=== PATIENT | male | born 1985 | race Caucasian/White ===

== ENCOUNTER 2017-02-14 19:07 | Emergency (ER) | payer MEDICAID ==
[~2017-02-14] VITALS: Ht 170.2 cm; Wt 168.5 kg
[2017-02-14 19:15] VITALS: Ht 170.2 cm; Wt 168.5 kg
[2017-02-14] MEDS ORDERED: EPINEPHrine 1 MG INJ IM STA (19:53)
[2017-02-14] MEDS ORDERED: DIPHENHYDRAMINE 50 MG INJ IV STA (19:53)
[2017-02-14] MEDS ORDERED: METHYLPREDNISOLONE 125 MG INJ IV STA (19:53)
[2017-02-14] MEDS ORDERED: FAMOTIDINE 20 MG INJ IV STA (19:53)
[2017-02-14] MEDS ORDERED: SOD CHLORIDE 0.9% 1,000 ML IV ONE (20:00)
[2017-02-14] MEDS ORDERED: BEN25 PO (21:45)
[2017-02-14] MEDS ORDERED: PRED20TA PO (21:50)
[2017-02-14] MEDS ORDERED: EPIN0.3P4 INJ (21:50)
[2017-02-14 22:04] VITALS: BP 165/83; PULSE 99; RESP 15
--- NOTE | 2017-02-14 22:08 | ERD ---
ER Documentation Chief Complaint Date/Time DATE: 02/14/17 TIME: 22:05 Chief Complaint SOB after seafood today HPI Patient is a 31-year-old male here with who presents to the ED with bilateral arm itchiness, redness and shortness of breath with throat discomfort after eating seafood, crabs and shrimp today. Approximately 2 PM he ate the food and approximately 5 PM started developing symptoms. Denies recent surgeries. Denies chest pain or cough. Denies leg swelling or leg pain. Denies recent travel or smoking. ROS All systems reviewed and are negative except as per history of present illness. Medications Home Meds Active Scripts Prednisone* (Prednisone*) 20 Mg Tab, 60 MG PO DAILY for 4 Days, TAB Prov:THANIA CORRAL PA-C 02/14/17 Epinephrine (Epipen 2-Claudio) 0.3 Mg/0.3 Ml Pen.injctr, 1 EA INJ ONCE Y for ALLERGIC REACTION, #1 EA Prov:THANIA CORRAL PA-C 02/14/17 Diphenhydramine Hcl* (Benadryl*) 25 Mg Cap, 25 MG PO Q6, #30 CAP Prov:THANIA CORRAL PA-C 02/14/17 Allergies Allergies: Coded Allergies: No Known Allergy (Unverified , 07/10/13) PMhx/Soc Medical and Surgical Hx: pt denies Medical Hx, pt denies Surgical Hx History of Surgery: No Anesthesia Reaction: No Hx Neurological Disorder: No Hx Respiratory Disorders: No Hx Cardiac Disorders: No Hx Psychiatric Problems: No Hx Miscellaneous Medical Probl: No Hx Alcohol Use: No Hx Substance Use: No Hx Tobacco Use: No Smoking Status: Never smoker Physical Exam Vitals Vital Signs Date Time Temp Pulse Resp B/P Pulse Ox O2 Delivery O2 Flow Rate FiO2 02/14/17 20:49 82 26 154/87 95 Room Air 02/14/17 19:15 98.9 28 147/79 92 Physical Exam mal GENERAL: Well-developed, well-nourished obese male Appears in no acute distress. HEAD: Normocephalic, atraumatic. EYES: Pupils are equally reactive bilaterally. EOMs grossly intact. No conjunctival erythema. ENT: Moist mucous membranes. No uvula deviation. No kissing tonsils. No exudates. NECK: Supple. No lymphadenopathy or thyromegaly. No meningismus. negative kernig. negative brudinski. LUNG: Clear to auscultation bilaterally. No rhonchi, wheezing, rales or coarse breath sounds. HEART: Regular rate and rhythm. No murmurs, rubs or gallops. BACK: No midline tenderness. Extremities: Equal pulses bilaterally. No peripheral clubbing, cyanosis or edema. No unilateral leg swelling. Negative Homans sign. No palpable cord. NEUROLOGIC: Alert and oriented. Moving all four extremities. 5/5 strength in all extremities. Normal speech. Steady gait. SKIN: Normal color. Warm and dry. Erythematous arms.. Capillary refill < 2 seconds Results 24 hrs Current Medications Medications (Trade) Dose Ordered Sig/Alicia Route PRN Reason Start Time Stop Time Status Last Admin Dose Admin Diphenhydramine HCl (Benadryl) 50 mg ONCE STAT IV 02/14/17 19:53 02/14/17 19:56 DC 02/14/17 20:30 Epinephrine (EPINEPHrine) 0.3 mg ONCE STAT IM 02/14/17 19:53 02/14/17 19:56 DC 02/14/17 20:32 Famotidine (Pepcid Iv) 20 mg ONCE STAT IV 02/14/17 19:53 02/14/17 19:56 DC 02/14/17 20:31 Methylprednisolone Sodium Succinate 125 mg 125 mg ONCE STAT IV 02/14/17 19:53 02/14/17 19:56 DC 02/14/17 20:33 Sodium Chloride (NS) 1,000 ml @ 1,000 mls/hr Q1H ONCE IV 02/14/17 20:00 02/14/17 20:59 DC 02/14/17 20:49 Procedures/MDM ER COURSE: I kept the patient and/or family informed of laboratory and diagnostic imaging results throughout the emergency room course. MEDICAL DECISION MAKING: This is a 31-year-old male who presents with rash and shortness of breath after eating seafood. Vital signs were reviewed. Patient is afebrile. Patient is not hypoxic. She has an oxygen saturation of 90% in the ED. I consulted with my supervising physician Dr. Garcia who came to examine patient at bedside. Patient was given epinephrine, Solu-Medrol, IV fluids, normal saline Benadryl and Pepcid. Tolerated with no adverse reaction. Patient was observed in the ED and had improvement in symptoms. Oxygen saturation increased to 96%. I have low suspicion for PE. Low suspicion for ACS, PE, AAA, dissection, DVT. Low suspicion for necrotizing fasciitis, SJS, toxic epidermal necrolysis, Kawasaki, erythema multiforme, gangrene, scarlet fever, meningococcemia, sepsis , anaphylaxis, sepsis, deep space infection, or foreign body. Patient does not have tongue or lip swelling. Low suspicion for anaphylaxis. DISCHARGE: At this time, patient is stable for discharge and outpatient management with no new complaints during the ER course. Patient was sent home with prednisone, epinephrine as needed for future and Benadryl. Patient will be discharged home with instructions to recheck for new or worsening symptoms such as fever, nausea , weakness, LOC and to follow up with primary care in the next 1-2 days. Patient was advised to return to the ER for any new or worsening symptoms. Plan was discussed and patient and/or family understands and agrees. Home instructions were given. Departure Diagnosis: Primary Impression: Allergic reaction Encounter type: initial encounter Qualified Code: T78.40XA - Allergic reaction, initial encounter Condition: Stable Patient Instructions: Allergic Reaction, Drug Referrals: [facility] Usted se brantley hecho un examen mdico de control que le indica que no est en olvin condicin que requiera tratamiento urgente en el Departamento de Emergencia. Un estudio ms profundo y el tratamiento de blair condicin pueden esperar sin ningn riesgo hasta que usted sea atendida/o en el consultorio de blair mdico o olvin cl krunal. Es responsabilidad suya arreglar olvin michele para el seguimiento del ysei. MANEJO DE CONDICIONES NO URGENTES EN EL FUTURO 1) Si usted tiene un mdico de atencin primaria: Usted debera llamar a blair mdico de atencin primaria antes de venir al departamento de emergencia. Despus de las horas de consultorio, blair doctor o blair asociado/a est disponible por telfono. El mdico o enfermero de deb en el servicio telefnico puede asesorarle por lulu medio para atender el problema, o yesi contrario se puede programar olvin michele. 2) Si usted no tiene un mdico de atencin primaria: Llame al mdico o clnica de referencia que aparece abajo ravin las horas de consultorio para hacer olvin michele para que le vean. CLINICAS: [facility] [phone] [facility] [phone] [facility] [phone] [place] [id number] [phone] [place] [id number] [phone] [facility]. [phone] [address] Additional Instructions: Llame al doctor MAANA y dom olvin MICHELE PARA DENTRO DE 1-2 ZAPATA.Dgale a la secretaria que nosotros le instruimos hacer esta michele.Avise o llame si blair condicin se empeora antes de la michele. Regresa aqui si peor o no mejor. THANIA CORRAL PA-C Feb 14, 2017 22:08
== END 2017-02-14 22:04 | disposition home or self-care (01) ==
LOC: FTE 19:07
DX: R06.02 Shortness of breath (principal); T78.1XXA Other adverse food reactions, not elsewhere classified, initial encounter
CPT/HCPCS: 96372; 96374; 96375; J0171; J1200; J2930; J7030; Z7502; Z7610

== ENCOUNTER 2018-09-11 01:17 | Inpatient (IN) | payer MEDICAID ==
[2018-09-11] VITALS (8 sets, daily range): BP systolic 121–124; BP diastolic 59–76; PULSE 67–104; RESP 18; Ht 170.2 cm; Wt 177.8 kg
[~2018-09-11] VITALS: Ht 170.2 cm; Wt 177.8 kg
[~2018-09-11 01:17] MED LIST: BEN25 PO; EPIN0.3P4 INJ; PRED20TA PO
[2018-09-11] MEDS ORDERED: ASPIRIN 325 MG TAB PO STA (02:57)
--- NOTE | 2018-09-11 03:26 | ERD ---
ER Documentation Chief Complaint Chief Complaint PALPITATIONS, L ARM PAIN, BENITO X'S 1 HOUR HPI This 33-year-old male who is here for palpitations and shortness of breath. He said he was asleep and woke up with palpitations and difficulty breathing for 30-40 minutes with some chest pressure. He said the chest pressure was mild. He says he does not have sleep apnea and states he has not had any chest pain as of late. Denies any cough. He says he feels better now. No radiation of pain down the arm or neck. The patient is morbidly obese with hypertension ROS All systems reviewed and are negative except as per history of present illness. Medications Home Meds Active Scripts Prednisone* (Prednisone*) 20 Mg Tab, 60 MG PO DAILY for 4 Days, TAB Prov:THANIA CORRAL PA-C 02/14/17 Epinephrine (Epipen 2-Claudio) 0.3 Mg/0.3 Ml Pen.injctr, 1 EA INJ ONCE PRN for ALLERGIC REACTION, #1 EA Prov:THANIA CORRAL PA-C 02/14/17 Diphenhydramine Hcl* (Benadryl*) 25 Mg Cap, 25 MG PO Q6, #30 CAP Prov:THANIA CORRAL PA-C 02/14/17 Allergies Allergies: Coded Allergies: No Known Allergy (Unverified , 07/10/13) PMhx/Soc Medical and Surgical Hx: pt denies Medical Hx, pt denies Surgical Hx History of Surgery: No Anesthesia Reaction: No Hx Neurological Disorder: No Hx Respiratory Disorders: No Hx Cardiac Disorders: No Hx Psychiatric Problems: No Hx Miscellaneous Medical Probl: No Hx Alcohol Use: No Hx Substance Use: No Hx Tobacco Use: No Smoking Status: Never smoker FmHx Family History: No coronary disease Physical Exam Vitals Vital Signs Date Temp Pulse Resp B/P (MAP) Pulse Ox O2 O2 Flow FiO2 Time Delivery Rate 09/11/18 85 12 152/89 96 Nasal 3.0 05:29 (110) Cannula 09/11/18 Nasal 2 02:59 Cannula 09/11/18 98.0 87 20 130/82 93 Room Air 02:31 (98) 09/11/18 98.0 86 20 156/83 93 01:21 (107) Physical Exam Const: Well-developed, well-nourished Head: Atraumatic, normocephalic Eyes: Normal Conjunctiva, PERRLA, EOMI, normal sclera, no nystagmus ENT: Normal External Ears, Nose and Mouth, moist mucus membranes. Neck: Full range of motion. No meningismus, no lymphadenopathy. Resp: Clear to auscultation bilaterally, no wheezing, rhonchi, rales Cardio: Regular rate and rhythm, no murmurs, S1 S2 present Abd: Soft, non tender x 4, non distended. Normal bowel sounds, no guarding or rebound, no pulsitile abdominal masses or bruits Skin: No petechiae or rashes, no ecchymosis , no maculopapular rash Back: No midline or flank tenderness Ext: No cyanosis, or edema, FROM x 4, normal inspection, neurovascularly intact x 4 Neur: Awake and alert, STR 5/5 x 4, sensation intact x 4, no focal findings, cerebellum intact Psych: Normal Mood and Affect Result Diagram: 09/11/18 0230 09/11/18 0230 Results 24 hrs Laboratory Tests Test 09/11/18 02:30 White Blood Count 9.3 10^3/ul Red Blood Count 6.06 10^6/ul Hemoglobin 15.9 g/dl Hematocrit 50.8 % Mean Corpuscular Volume 83.8 fl Mean Corpuscular Hemoglobin 26.2 pg Mean Corpuscular Hemoglobin Concent 31.3 g/dl Red Cell Distribution Width 13.9 % Platelet Count 226 10^3/UL Mean Platelet Volume 10.6 fl Immature Granulocytes % 0.400 % Neutrophils % 64.6 % Lymphocytes % 23.0 % Monocytes % 8.2 % Eosinophils % 3.2 % Basophils % 0.6 % Nucleated Red Blood Cells % 0.0 /100WBC Immature Granulocytes # 0.040 10^3/ul Neutrophils # 6.0 10^3/ul Lymphocytes # 2.1 10^3/ul Monocytes # 0.8 10^3/ul Eosinophils # 0.3 10^3/ul Basophils # 0.1 10^3/ul Nucleated Red Blood Cells # 0.0 10^3/ul Prothrombin Time 12.6 Sec Prothrombin Time Ratio 1.0 INR International Normalized Ratio 0.93 Activated Partial Thromboplast Time 27.4 Sec Sodium Level 145 mmol/L Potassium Level 4.1 mmol/L Chloride Level 101 mmol/L Carbon Dioxide Level 33 mmol/L Anion Gap 11 Blood Urea Nitrogen 15 mg/dl Creatinine 0.68 mg/dl Est Glomerular Filtrat Rate mL/min > 60 mL/min Glucose Level 128 mg/dl Calcium Level 9.6 mg/dl Troponin I 0.012 ng/ml B-Type Natriuretic Peptide 23 PG/ML Current Medications Medications Dose Sig/Alicia Start Time Status Last (Trade) Ordered Route PRN Stop Time Admin Dose Reason Admin Aspirin 325 mg ONCE STAT 09/11/18 DC 09/11/18 (Aspirin) PO 02:57 03:07 09/11/18 02:59 IV Flush 10 ml STK-MED 09/11/18 DC (NS 10 ml) ONCE .ROUTE 04:27 09/11/18 04:28 Sodium 100 ml @ ud STK-MED 09/11/18 DC Chloride ONCE .ROUTE 04:09/11/18 04:28 Iohexol 100 ml @ ud STK-MED 09/11/18 DC ONCE .ROUTE 04:27 09/11/18 04:28 Procedures/MDM PROCEDURE: CTA Chest and pulmonary angiogram. CLINICAL INDICATION: Shortness of breath TECHNIQUE: CT scan of the chest and CT pulmonary angiogram was performed on a multidetector high-resolution CT scanner. High-resolution thin slice coronal and sagittal imaging was obtained from the axial source images. 3-D volumetric rendered post processing was performed as well. The patient was examined following the uncomplicated intravenous administration of 99 cc of Omnipaque 350. The images were reviewed on a PACS workstation. The total exam CTDI equals 114.5 mGy, and the total exam DLP equals 867.6 mGy-cm. DICOM images are available. COMPARISON: CR CHEST 07/27/2014 FINDINGS: CT chest: There are mild dependent compressive changes. No focal consolidation, pleural effusion, pneumothorax, edema, or nodules are seen. The central tracheobronchial tree is clear. The mediastinum is unremarkable without evidence for mass or lymphadenopathy. The vascular structures of the mediastinum are normal in course and caliber. The heart size is normal without pericardial thickening or effusion. Prominent mediastinal and epicardial fat is noted.. The axillary, subpectoral, and supraclavicular regions are unremarkable. The surrounding chest wall is unremarkable. Imaging obtained through the upper abdomen is unremarkable.. The adrenal glands are symmetrically normal. Old left rib fractures are seen. CT pulmonary angiogram: CT pulmonary angiogram is limited due to bolus timing. No large filling defects are identified in the central pulmonary arteries. The pulmonary arteries are normal in caliber and morphology. There is no evidence for pulmonary arterial hypertension. IMPRESSION: 1. Limited CT pulmonary angiogram. Ventilation-perfusion scan is recommended. 2. No acute infiltrate, mass or lymphadenopathy. [facility] Mick Toledo Physician Date Time Electronically viewed and signed by Mick Toledo Physician on 09/11/2018 06:08 CS/ CC: PIO THAPA DO [id number] Will order VQ scan. Cardiac Admit MDM: Patient's symptoms are concerning for cardiac cause will require inpatient workup and continuous monitoring. Further w/u for ischemia, arrhythmia, PE or dissection will be deferred to the inpatient team. Departure Diagnosis: Primary Impression: Chest pain Chest pain type: unspecified Qualified Codes: R07.9 - Chest pain, unspecified Additional Impression: Shortness of breath Condition: Stable PIO THAPA DO Sep 11, 2018 03:26
[2018-09-11] MEDS ORDERED: SOD CHLORIDE 0.9% 100 ML ONE (04:27)
[2018-09-11] MEDS ORDERED: IOHEXOL 100 ML ONE (04:27)
[2018-09-11] MEDS ORDERED: ACETAMINOPHEN 325 MG TAB PO PRN ×2 (06:30→07:00)
[2018-09-11] MEDS ORDERED: ONDANSETRON 4 MG INJ IV PRN ×2 (06:30→07:00)
[2018-09-11] MEDS ORDERED: DOCUSATE SODIUM 100 MG CAP PO PRN (07:00)
[2018-09-11] MEDS ORDERED: NACL 0.9% 3 ML SYG IV SCH (07:00)
[2018-09-11] MEDS ORDERED: NITROGLYCERIN (SL) 0.4 MG TAB SL PRN (07:00)
[2018-09-11] MEDS ORDERED: BISACODYL (EC) 5 MG TAB PO PRN (07:00)
[2018-09-11] MEDS ORDERED: morphine 2 MG INJ IV PRN (07:00)
--- NOTE | 2018-09-11 09:00 | HP ---
Date/Time of Note Date/Time of Note DATE: 09/11/18 TIME: 08:52 Assessment/Plan VTE Prophylaxis SCD applied (from Nsg): Yes Pharmacological prophylaxis: NA/contraindicated Pharm contraindication: low risk/ambulating Lines/Catheters IV Catheter Type (from Nrsg): Saline Lock Assessment/Plan Hospital Course This is a 33-year-old male being admitted to the telemetry floor for observation for: 1 chest pain: Rule out ACS versus obesity hypoventilation syndrome/obstructive sleep apnea: We will trend cardiac enzymes x3, the first that was negative. Will check an echocardiogram. CT of the chest did not proved to be a adequately performed study, we will order a VQ scan of the chest. 2. Suspect obesity hypoventilation syndrome/obstructive sleep apnea: Patient is morbidly obese and does have trace lower extremity edema. Based on his symptoms of daytime sleepiness, non-restful sleep and morning headaches I do feel like he has an underlying diagnosis of obstructive sleep apnea/obesity hypoventilation syndrome. Patient needs a primary care doctor upon discharge with referral to a patent legal assistant. #3 morbid obesity: Check hemoglobin A 1C, lipid panel, TSH, I did have an extensive discussion regarding diet and exercise with the patient as well. #4 DVT GI prophylaxis: SCDs, no GI prophylaxis indicated Further treatment strategy could be implemented as per the clinical course Result Diagram: 09/11/18 0230 09/11/18 0230 Results 24hrs Laboratory Tests Test 09/11/18 02:30 09/11/18 07:21 White Blood Count 9.3 Red Blood Count 6.06 Hemoglobin 15.9 Hematocrit 50.8 Mean Corpuscular Volume 83.8 Mean Corpuscular Hemoglobin 26.2 L Mean Corpuscular Hemoglobin Concent 31.3 L Red Cell Distribution Width 13.9 Platelet Count 226 Mean Platelet Volume 10.6 H Immature Granulocytes % 0.400 Neutrophils % 64.6 Lymphocytes % 23.0 Monocytes % 8.2 Eosinophils % 3.2 Basophils % 0.6 Nucleated Red Blood Cells % 0.0 Immature Granulocytes # 0.040 H Neutrophils # 6.0 Lymphocytes # 2.1 Monocytes # 0.8 Eosinophils # 0.3 Basophils # 0.1 Nucleated Red Blood Cells # 0.0 Prothrombin Time 12.6 Prothrombin Time Ratio 1.0 INR International Normalized Ratio 0.93 Activated Partial Thromboplast Time 27.4 Sodium Level 145 H Potassium Level 4.1 Chloride Level 101 Carbon Dioxide Level 33 H Anion Gap 11 Blood Urea Nitrogen 15 Creatinine 0.68 Est Glomerular Filtrat Rate mL/min > 60 Glucose Level 128 Calcium Level 9.6 Troponin I 0.012 < 0.012 B-Type Natriuretic Peptide 23 16 Hemoglobin A1c 6.4 H Creatine Kinase 86 Creatine Kinase Index 1.2 Creatinine Kinase MB (Mass) 1.00 Triglycerides Level 119 Cholesterol Level 167 LDL Cholesterol, Calculated 107 HDL Cholesterol 36 Cholesterol/HDL Ratio 4.6 Thyroid Stimulating Hormone (TSH) Pending Ethyl Alcohol Level < 10.0 H HPI/ROS Admit Date/Time Admit Date/Time Sep 11, 2018 at 06:17 Hx of Present Illness Chief complaint: Palpitations, shortness of breath This 33-year-old male who is here for palpitations and shortness of breath. He said he was asleep and woke up with palpitations and difficulty breathing for 30-40 minutes with some chest pressure. He said the chest pressure was mild. He says he does not have sleep apnea and states he has not had any chest pain as of late. Denies any cough. He says he feels better now. No radiation of pain down the arm or neck. The patient is morbidly obese. Patient does report that he experiences daytime sleepiness. His is also present with him at the bedside who does report that he snores a lot at night and often wakes up with headaches. Allergies: NKDA Medications: None ROS Const: As per HPI Eyes : No pain discharge or redness or change in visual acuity ENT: No pain, sore throat, congestion, congestion, dysphagia or discharge Respiratory: No shortness of breath, cough, sputum, wheezing, or pleuritic pain Cardiovascular: As per HPI GI : no change in appetite, abdominal pain, nausea, vomiting, diarrhea, constipation, or change in the color his stool Genitourinary: No dysuria, hematuria, flank pain , discharge or CVA tenderness Musculoskeletal: No joint pain, back pain, neck pain, restricted range of motion in neck or joints Skin: No rash, bruising or hives Neuro: As per HPI Endocrine: No polyuria, polydipsia, temperature intolerance Psych: No hallucination, depression, anxiety or suicidal ideation PMH/Family/Social Past Medical History Prediabetes Medications Current Medications Ondansetron HCl (Zofran Inj) 4 mg ER BRIDGE PRN IV NAUSEA/VOMITING; Start 09/11/18 at 06:30; Stop 09/12/18 at 06:29 Acetaminophen (Tylenol Tab) 650 mg ER BRIDGE PRN PO .MILD PAIN 1-3 OR TEMP; St art 09/11/18 at 06:30; Stop 09/12/18 at 06:29 IV Flush (NS 3 ml) 3 ml PER PROTOCOL IV ; Start 09/11/18 at 07:00 Ondansetron HCl (Zofran Inj) 4 mg Q6H PRN IV NAUSEA/VOMITING; Start 09/11/18 at 07:00 Nitroglycerin (Nitroglycerin (Sl Tab) 0.4 Mg) 1 tab Q5M PRN SL .CHEST PAIN; Start 09/11/18 at 07:00 Acetaminophen (Tylenol Tab) 650 mg Q6H PRN PO .PAIN 1-3 OR TEMP; Start 09/11/18 at 07:00 Morphine Sulfate (morphine) 2 mg Q4H PRN IV .PAIN 7-10; Start 09/11/18 at 07:00 Docusate Sodium (Colace) 100 mg Q12H PRN PO .CONSTIPATION; Start 09/11/18 at 07:00 Bisacodyl (Dulcolax) 5 mg DAILY PRN PO .CONSTIPATION; Start 09/11/18 at 07:00 Coded Allergies: No Known Allergy (Unverified , 07/10/13) Past Surgical History Past Surgical Hx: no surgical history Family History Significant Family History: no pertinent family hx Social History Alcohol Use: rarely Smoking Status: Never smoker Drug Use: none Exam/Review of Systems Vital Signs Vitals Vital Signs Date Temp Pulse Resp B/P (MAP) Pulse Ox O2 O2 Flow FiO2 Time Delivery Rate 09/11/18 72 08:40 09/11/18 98.4 16 110/91 97 Nasal 3.0 08:02 (97) Cannula Exam Exam General: Patient is currently lying in bed in no acute distress, patient is morbidly obese HEENT: Atraumatic, normocephalic. The pupils are equal, round and reactive. Extraocular motor are intact Neck: Supple with full range of motion. No rigidity or meningismus Chest: Nontender Lungs: Clear to auscultation bilaterally no crackles rales or wheezing Heart: Normal S1-S2, Regular rhythm and rate. Abdomen: Morbidly obese, soft , nontender, nondistended , bowel sounds are present. No guarding no rebound tenderness , No masses or organomegaly. No costovertebral temporal angle mass Extremities: Trace pitting edema of the bilateral lower extremities Neurologic: Normal mental status, speech normal, cranial nerves II through XII are intact, motor and sensory are intact, no focal weakness Additional Comments Telemetry reading: Normal sinus rhythm at approximately 86 bpm, PROCEDURE: CTA Chest and pulmonary angiogram. CLINICAL INDICATION: Shortness of breath TECHNIQUE: CT scan of the chest and CT pulmonary angiogram was performed on a multidetector high-resolution CT scanner. High-resolution thin slice coronal and sagittal imaging was obtained from the axial source images. 3-D volumetric rendered post processing was performed as well. The patient was examined following the uncomplicated intravenous administration of 99 cc of Omnipaque 350. The images were reviewed on a PACS workstation. The total exam CTDI equals 114.5 mGy, and the total exam DLP equals 867.6 mGy-cm. DICOM images are available. COMPARISON: CR CHEST 07/27/2014 FINDINGS: CT chest: There are mild dependent compressive changes. No focal consolidation, pleural effusion, pneumothorax, edema, or nodules are seen. The central trache obronchial tree is clear. The mediastinum is unremarkable without evidence for mass or lymphadenopathy. The vascular structures of the mediastinum are normal in course and caliber. The heart size is normal without pericardial thickening or effusion. Prominent mediastinal and epicardial fat is noted.. The axillary, subpectoral, and supraclavicular regions are unremarkable. The surrounding chest wall is unremarkable. Imaging obtained through the upper abdomen is unremarkable.. The adrenal glands are symmetrically normal. Old left rib fractures are seen. CT pulmonary angiogram: CT pulmonary angiogram is limited due to bolus timing. No large filling defects are identified in the central pulmonary arteries. The pulmonary arteries are normal in caliber and morphology. There is no evidence for pulmonary arterial hypertension. IMPRESSION: 1. Limited CT pulmonary angiogram. Ventilation-perfusion scan is recommended. 2. No acute infiltrate, mass or lymphadenopathy. [facility] Mick Toledo, Physician Date Time Electronically viewed and signed by Mick Toledo, Physician on 09/11/2018 06:08 CS/ CC: PIO THAPA DO [id number] BRIAN SALAS Sep 11, 2018 09:00
--- NOTE | 2018-09-11 15:34 | PN ---
Date/Time of Note Date/Time of Note DATE: 09/11/18 TIME: 15:21 Assessment/Plan VTE Prophylaxis SCD applied (from Nsg): Yes Pharmacological prophylaxis: NA/contraindicated Pharm contraindication: low risk/ambulating Lines/Catheters IV Catheter Type (from Nrsg): Saline Lock Urinary Cath still in place: No Assessment/Plan Assessment/Plan 1. Acute chest pain - most likely demand in setting of morbid obesity - troponins negative x2 - ECHO results pending - CT chest not adequate and unable to perform V/Q due to size 2. Pickwickian syndrome - lifestyle modification - CPAP at night and will need outpatient sleep study which can be arranged by PCP 3. Morbid obesity - A1c, lipid panel results noted 4. Disposition - Awaiting 3rd troponin and ECHO results - if patients symptoms resolve and results negative for ACS, can d/c home Result Diagram: 09/11/18 0230 09/11/18 0230 Results 24hrs Laboratory Tests Test 09/11/18 02:30 09/11/18 07:21 09/11/18 12:30 09/11/18 14:04 White Blood Count 9.3 Red Blood Count 6.06 Hemoglobin 15.9 Hematocrit 50.8 Mean Corpuscular 83.8 Volume Mean Corpuscular 26.2 L Hemoglobin Mean Corpuscular 31.3 L Hemoglobin Concent Red Cell 13.9 Distribution Width Platelet Count 226 Mean Platelet Volume 10.6 H Immature 0.400 Granulocytes % Neutrophils % 64.6 Lymphocytes % 23.0 Monocytes % 8.2 Eosinophils % 3.2 Basophils % 0.6 Nucleated Red Blood 0.0 Cells % Immature 0.040 H Granulocytes # Neutrophils # 6.0 Lymphocytes # 2.1 Monocytes # 0.8 Eosinophils # 0.3 Basophils # 0.1 Nucleated Red Blood 0.0 Cells # Prothrombin Time 12.6 Prothrombin Time 1.0 Ratio INR International 0.93 Normalized Ratio Activated 27.4 Partial Thromboplast Time Sodium Level 145 H Potassium Level 4.1 Chloride Level 101 Carbon Dioxide Level 33 H Anion Gap 11 Blood Urea Nitrogen 15 Creatinine 0.68 Est Glomerular > 60 Filtrat Rate mL/min Glucose Level 128 Calcium Level 9.6 Troponin I 0.012 < 0.012 Pending B-Type Natriuretic 23 16 Peptide Hemoglobin A1c 6.4 H Creatine Kinase 86 78 Creatine Kinase 1.2 Pending Index Creatinine Kinase MB 1.00 Pending (Mass) Triglycerides Level 119 Cholesterol Level 167 LDL Cholesterol, 107 Calculated HDL Cholesterol 36 Cholesterol/HDL 4.6 Ratio Thyroid Stimulating 2.460 Hormone (TSH) Ethyl Alcohol Level < 10.0 H Urine Opiates Screen Negative Urine Barbiturates Negative Urine Amphetamines Negative Screen Urine Negative Benzodiazepines Screen Urine Cocaine Screen Negative Urine Cannabinoids Negative Subjective 24 Hr Interval Summary Free Text/Dictation Patient denies any acute chest pain but still with shortness of breath. No acute overnight event. Exam/Review of Systems Exam Vitals Vital Signs Date Temp Pulse Resp B/P (MAP) Pulse Ox O2 O2 Flow FiO2 Time Delivery Rate 09/11/18 97.7 87 18 124/74 92 Nasal 2.0 15:12 (91) Cannula Exam General: Patient is currently lying in bed in no acute distress, patient is morbidly obese Neck: Supple Chest: Nontender Lungs: Clear to auscultation bilaterally no crackles rales or wheezing Heart: Normal S1-S2, Regular rhythm and rate. no murmurs Abdomen: Morbidly obese, soft , nontender, nondistended , bowel sounds are present Extremities: Trace pitting edema of the bilateral lower extremities Results Results 24hrs Laboratory Tests Test 09/11/18 02:30 09/11/18 07:21 09/11/18 12:30 09/11/18 14:04 White Blood Count 9.3 Red Blood Count 6.06 Hemoglobin 15.9 Hematocrit 50.8 Mean Corpuscular 83.8 Volume Mean Corpuscular 26.2 L Hemoglobin Mean Corpuscular 31.3 L Hemoglobin Concent Red Cell 13.9 Distribution Width Platelet Count 226 Mean Platelet Volume 10.6 H Immature 0.400 Granulocytes % Neutrophils % 64.6 Lymphocytes % 23.0 Monocytes % 8.2 Eosinophils % 3.2 Basophils % 0.6 Nucleated Red Blood 0.0 Cells % Immature 0.040 H Granulocytes # Neutrophils # 6.0 Lymphocytes # 2.1 Monocytes # 0.8 Eosinophils # 0.3 Basophils # 0.1 Nucleated Red Blood 0.0 Cells # Prothrombin Time 12.6 Prothrombin Time 1.0 Ratio INR International 0.93 Normalized Ratio Activated 27.4 Partial Thromboplast Time Sodium Level 145 H Potassium Level 4.1 Chloride Level 101 Carbon Dioxide Level 33 H Anion Gap 11 Blood Urea Nitrogen 15 Creatinine 0.68 Est Glomerular > 60 Filtrat Rate mL/min Glucose Level 128 Calcium Level 9.6 Troponin I 0.012 < 0.012 Pending B-Type Natriuretic 23 16 Peptide Hemoglobin A1c 6.4 H Creatine Kinase 86 78 Creatine Kinase 1.2 Pending Index Creatinine Kinase MB 1.00 Pending (Mass) Triglycerides Level 119 Cholesterol Level 167 LDL Cholesterol, 107 Calculated HDL Cholesterol 36 Cholesterol/HDL 4.6 Ratio Thyroid Stimulating 2.460 Hormone (TSH) Ethyl Alcohol Level < 10.0 H Urine Opiates Screen Negative Urine Barbiturates Negative Urine Amphetamines Negative Screen Urine Negative Benzodiazepines Screen Urine Cocaine Screen Negative Urine Cannabinoids Negative Medications Medication Current Medications Ondansetron HCl (Zofran Inj) 4 mg ER BRIDGE PRN IV NAUSEA/VOMITING; Start 09/11/18 at 06:30; Stop 09/12/18 at 06:29 Acetaminophen (Tylenol Tab) 650 mg ER BRIDGE PRN PO .MILD PAIN 1-3 OR TEMP; Start 09/11/18 at 06:30; Stop 09/12/18 at 06:29 IV Flush (NS 3 ml) 3 ml PER PROTOCOL IV ; Start 09/11/18 at 07:00 Ondansetron HCl (Zofran Inj) 4 mg Q6H PRN IV NAUSEA/VOMITING; Start 09/11/18 at 07:00 Nitroglycerin (Nitroglycerin (Sl Tab) 0.4 Mg) 1 tab Q5M PRN SL .CHEST PAIN; Start 09/11/18 at 07:00 Acetaminophen (Tylenol Tab) 650 mg Q6H PRN PO .PAIN 1-3 OR TEMP; Start 09/11/18 at 07:00 Morphine Sulfate (morphine) 2 mg Q4H PRN IV .PAIN 7-10; Start 09/11/18 at 07:00 Docusate Sodium (Colace) 100 mg Q12H PRN PO .CONSTIPATION; Start 09/11/18 at 07:00 Bisacodyl (Dulcolax) 5 mg DAILY PRN PO .CONSTIPATION; Start 09/11/18 at 07:00 CORAZON CHUA MD Sep 11, 2018 15:34
[2018-09-12] VITALS (13 sets, daily range): BP systolic 122–149; BP diastolic 64–78; PULSE 73–93; RESP 16–18
[2018-09-12] MEDS ORDERED: ALBUTEROL/IPRATROPIUM (NEB) 3 ML AMP HHN PRN (15:30)
--- NOTE | 2018-09-12 16:21 | PN ---
Date/Time of Note Date/Time of Note DATE: 09/12/18 TIME: 16:16 Objective Vitals Vital Signs Date Temp Pulse Resp B/P (MAP) Pulse Ox O2 O2 Flow FiO2 Time Delivery Rate 09/12/18 98.3 83 16 122/64 93 15:38 (83) 09/12/18 Nasal 2.0 08:24 Cannula 09/12/18 40 02:50 Intake and Output 09/11/18 09/11/18 09/12/18 1515:00 23:00 07:00 IntakeIntake Total 1000 ml 1400 ml OutputOutput Total 400 ml BalanceBalance 600 ml 1400 ml Results Result Diagram: 09/12/18 0555 09/12/18 0554 Medications Medications Current Medications IV Flush (NS 3 ml) 3 ml PER PROTOCOL IV ; Start 09/11/18 at 07:00 Ondansetron HCl (Zofran Inj) 4 mg Q6H PRN IV NAUSEA/VOMITING; Start 09/11/18 at 07:00 Nitroglycerin (Nitroglycerin (Sl Tab) 0.4 Mg) 1 tab Q5M PRN SL .CHEST PAIN; Start 09/11/18 at 07:00 Acetaminophen (Tylenol Tab) 650 mg Q6H PRN PO .PAIN 1-3 OR TEMP; Start 09/11/18 at 07:00 Morphine Sulfate (morphine) 2 mg Q4H PRN IV .PAIN 7-10; Start 09/11/18 at 07:00 Docusate Sodium (Colace) 100 mg Q12H PRN PO .CONSTIPATION; Start 09/11/18 at 07:00 Bisacodyl (Dulcolax) 5 mg DAILY PRN PO .CONSTIPATION; Start 09/11/18 at 07:00 Albuterol/ Ipratropium (Duoneb) 3 ml Q6HWA RESP THERAPY HHN ; Start 09/12/18 at 20:00 Albuterol/ Ipratropium (Duoneb) 3 ml Q2H RESP THERAPY PRN HHN shortness of breath; Start 09/12/18 at 15:30 Budesonide (Pulmicort (Neb)) 0.5 mg BID RESP THERAPY HHN ; Start 09/12/18 at 20:00 VTE Prophylaxis Risk score (from Ns)>0 risk: 2 SCD applied (from Nsg): No SCD contraindication: other Lines/Catheters IV Catheter Type: [place] in Place: No Assessment/Plan Hospital Course Subjective Patient feeling well with nasal cannula Objective Physical exam General: Patient is laying in bed and answers questions appropriately Mentation: Patient is alert and oriented 4, Head: Normocephalic atraumatic Eyes: EOMI, pupils reactive to light Neck: Supple, nontender, midline Respiratory: Clear to auscultation bilaterally Cardiovascular: regular rate, no obvious murmurs Gastrointestinal: non-tender to palpation, bowel sounds heard. Neurological: Moves all extremities spontaneously Skin: No new skin lesions Assessment/Plan 1. Acute chest pain, resolved - most likely demand in setting of morbid obesity - troponins negative x3 - ECHO results pending - CT chest not adequate and unable to perform V/Q due to size 2. Pickwickian syndrome/Obesity hypoventilation - lifestyle modification - CPAP at night and will need outpatient sleep study which can be arranged by PCP -Although patient states he feels well, FiO2 is persistently low without nasal cannula, will try nebulizers to try to increase oxygen if patient can be discharged with a safe FiO2 -Pulmonology has been consulted as patient's CT angio was not not conclusive for no PE however patient does not have PE symptoms, patient is too obese for VQ scan, ABG has been ordered 3. Morbid obesity - A1c, lipid panel results noted 4. Disposition MADISON WHITLEY Sep 12, 2018 16:21
--- NOTE | 2018-09-12 20:40 | RADRPT ---
Echocardiogram Report Patient Name: BERE KELLYPatient ID: [id number] : 1985 (33y 5m)Study Date: 09/12/2018 7:19:25 AM Gender: MAccession #: [id number] Tech: SalbadorAnil Oseguera [facility] Location: [facility] Ref.Physician: BRIAN SALAS Height(Cm): BSA: Weight(Kg): Quality: Technically Difficult StudyAccount #: Procedures: Echocardiographic Report: Transthoracic echocardiogram with complete 2D, M-Mode, and doppler examination. Indications: Chest Pain. Measurements: 2D/M Mode Doppler Measurement Value Normal Range Measurement Value Normal Range LVIDd 2D 5.0 [ 4.2 - 5.8 ] cm AV Peak Cal 1.5 [ 100.0 - 170.0 ] cm/sec LVIDs 2D 2.8 [ 2.5 - 4.0 ] cm AV Peak PG 9.0 [ 2.0 - 9.0 ] mmHg LVPWd 2D 1.4 [ 0.6 - 1.0 ] cm LVOT Peak Cal 1.4 [ 70.0 - 110.0 ] cm/sec IVSd 2D 1.5 [ 0.6 - 1.0 ] cm LVOT Peak PG 8.0 [ 2.0 - 6.0 ] mmHg AoR Diam 2D 3.1 [ 2.6 - 3.4 ] cm MV E Peak Cal 0.8 [ 60.0 - 130.0 ] cm/sec EDV 2D 119.0 [ 62.0 - 150.0 ] ml MV A Peak Cal 0.7 [ 100.0 - 120.0 ] cm/sec ESV 2D 29.8 [ 21.0 - 61.0 ] ml MV E/A 1.2 [ 0.8 - 1.5 ] ratio EF 2D 75.0 [ 52.0 - 72.0 ] percent MV Decel Time 144 [ 104 - 258 ] msec LA Dimen 2D 4.0 [ 3.0 - 4.0 ] cm Lat E` Cal 0.1 [ 10.0 - 15.0 ] cm/sec Lateral E/E` 6.0 [ 1.0 - 2.0 ] ratio Med E` Cal 0.1 cm/sec MV E/A 1.2 [ 0.8 - 1.5 ] ratio Findings: Left Ventricle: Normal left ventricular systolic function. Normal left ventricular cavity size. Ejection fraction is visually estimated at 60-65 %. Tissue Doppler/Mitral Doppler indices are within normal limits. Right Ventricle: Normal right ventricular size. Normal right ventricular systolic function. Left Atrium: The left atrium is normal in size. Right Atrium: The right atrium is normal in size. Mitral Valve: Normal appearance and function of the mitral valve with trace physiologic regurgitation. Aortic Valve: Normal appearance of the aortic valve. No significant aortic stenosis or insufficiency. Tricuspid Valve: Normal appearance of the tricuspid valve. Unable to obtain RVSP due to minimal presence of tricuspid regurgitation. Pulmonic Valve: Normal pulmonic valve appearance. Pericardium: Normal pericardium with no significant pericardial effusion. Aorta: Normal aortic root. IVC: Normal size and normal respiratory collapse consistent with normal right atrial pressure. Conclusions: Normal left ventricular systolic function. Normal left ventricular cavity size. Ejection fraction is visually estimated at 60-65 %. Tissue Doppler/Mitral Doppler indices are within normal limits. Normal appearance and function of the mitral valve with trace physiologic regurgitation. Normal appearance of the tricuspid valve. Unable to obtain RVSP due to minimal presence of tricuspid regurgitation. Electronically Signed By: Jonathan Hough 2018-09-12 20:39:28 PDT
[2018-09-12] MEDS: ALBUTEROL/IPRATROPIUM (NEB) 3 ML AMP HHN SCH (21:39)
[2018-09-12] MEDS: BUDESONIDE (NEB) 0.5MG/2ML AMP HHN SCH (21:39)
[2018-09-13] VITALS (11 sets, daily range): BP systolic 117–147; BP diastolic 65–87; PULSE 70–89; RESP 16–18
[2018-09-13] MEDS: ALBUTEROL/IPRATROPIUM (NEB) 3 ML AMP HHN SCH ×3 (08:56→20:53)
[2018-09-13] MEDS: BUDESONIDE (NEB) 0.5MG/2ML AMP HHN SCH ×2 (08:56→20:53)
--- NOTE | 2018-09-13 11:04 | CONS ---
Assessment/Plan Assessment/Plan Assessment/Plan (Daily) Assessment and recommendations; 1. Patient admitted with palpitations possibly cardiac arrhythmia induced by hypercapnic respiratory failure during sleep. 2. Morbid obesity with underlying sleep apnea with obesity hypoventilation syndrome due to underlying obstructive sleep apnea as well. 3. Mild generalized anasarca. Possibly some element of CHF. 4. History of hypertension. Continue BiPAP at night. Obtain 2D echocardiogram. Add HCTZ as a mild diuretic. Continue to monitor on telemetry. Further recommendations per internet network specialist. Patient will need to have BiPAP at home once he leaves the hospital. Will also need to have a sleep study done on an outpatient basis. Consultation Date/Type/Reason Admit Date/Time Sep 11, 2018 at 06:17 Date of Consultation: Sep 13, 2018 Type of Consult Pulmonary Pulmonary consult requested for evaluation of hypoxemic and hypercapnic respiratory failure. Patient is a pleasant 33-year-old male who came into the emergency room yesterday with episodes of palpitation during sleep which woke him up. According to him episode lasted about 30 minutes with spontaneous resolution. Patient denies any prior episodes and according to him he did not recur. Patient denies any shortness of breath, wheezing, cough, chest pain, any sputum production. Upon further evaluation patient had a CTA of the chest done which according to body habitus was difficult to interpret. However no acute pulmonary findings could be seen on CT imaging of the chest. ABG showing severe hypercapnic respiratory failure which is mostly compensated. 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 Past medical history; 1. History of hypertension patient apparently off medications. 2. History of hyperlipidemia. Medications; reviewed. Allergies; none. Social history; noncontributory. Family history; he is , he has 2 children. No history of any illnesses in the family. 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 Review of systems; denies any headache, visual changes, seizures. Any sinus symptoms. Denies any chest pain, angina, wheezing, denies any chronic shortness of breath. Does complain of snoring and excessive daytime sleepiness. Patient has lost some weight recently. Denies any GI or urinary symptoms. Denies any joint pains. Any skin changes. General exam; young male, morbidly obese, awake and alert. Currently in no distress. Date/Time of Note DATE: 09/13/18 TIME: 10:59 Past Medical History Home Meds Active Scripts Prednisone* (Prednisone*) 20 Mg Tab, 60 MG PO DAILY for 4 Days, TAB Prov:THANIA CORRAL PA-C 02/14/17 Epinephrine (Epipen 2-Claudio) 0.3 Mg/0.3 Ml Pen.injctr, 1 EA INJ ONCE PRN for ALLERGIC REACTION, #1 EA Prov:THANIA CORRAL PA-C 02/14/17 Diphenhydramine Hcl* (Benadryl*) 25 Mg Cap, 25 MG PO Q6, #30 CAP Prov:THANIA CORRAL PA-C 02/14/17 Medications Current Medications IV Flush (NS 3 ml) 3 ml PER PROTOCOL IV ; Start 09/11/18 at 07:00 Ondansetron HCl (Zofran Inj) 4 mg Q6H PRN IV NAUSEA/VOMITING; Start 09/11/18 at 07:00 Nitroglycerin (Nitroglycerin (Sl Tab) 0.4 Mg) 1 tab Q5M PRN SL .CHEST PAIN; Start 09/11/18 at 07:00 Acetaminophen (Tylenol Tab) 650 mg Q6H PRN PO .PAIN 1-3 OR TEMP; Start 09/11/18 at 07:00 Morphine Sulfate (morphine) 2 mg Q4H PRN IV .PAIN 7-10; Start 09/11/18 at 07:00 Docusate Sodium (Colace) 100 mg Q12H PRN PO .CONSTIPATION; Start 09/11/18 at 07:00 Bisacodyl (Dulcolax) 5 mg DAILY PRN PO .CONSTIPATION; Start 09/11/18 at 07:00 Albuterol/ Ipratropium (Duoneb) 3 ml Q6HWA RESP THERAPY HHN Last administered on 09/13/18at 08:56; Admin Dose 3 ML; Start 09/12/18 at 20:00 Albuterol/ Ipratropium (Duoneb) 3 ml Q2H RESP THERAPY PRN HHN shortness of breath; Start 09/12/18 at 15:30 Budesonide (Pulmicort (Neb)) 0.5 mg BID RESP THERAPY HHN Last administered on 09/13/18at 08:56; Admin Dose 0.5 MG; Start 09/12/18 at 20:00 Allergies: Coded Allergies: No Known Allergy (Unverified , 07/10/13) Past Surgical History Past Surgical Hx: no surgical history Social History Alcohol Use: rarely Smoking Status: Former smoker Drug Use: none Exam/Review of Systems Exam Vitals Vital Signs Date Temp Pulse Resp B/P (MAP) Pulse Ox O2 O2 Flow FiO2 Time Delivery Rate 09/13/18 2.0 28 08:59 09/13/18 78 22 94 08:57 09/13/18 98.2 147/65 07:26 (92) 09/12/18 Nasal 20:00 Cannula Intake and Output 09/12/18 09/12/18 09/13/18 1515:00 23:00 07:00 IntakeIntake Total 1200 ml 1300 ml BalanceBalance 1200 ml 1300 ml Exam H EENT exam; supple neck, JVD difficult to see because of short neck. Patient has good dentition. No neck masses. No lymphadenopathy. No thyromegaly. Chest exam; diminished but clear breath sounds. S1-S2 audible, no murmurs. Regular rhythm. Abdomen exam; soft, grossly protuberant. Organomegaly difficult to assess. Bowel sounds audible. Extremity exam; trace edema in lower and upper extremities. [employer] exam; no focal deficit. Results Result Diagram: 09/13/18 0759 09/13/18 0759 Results 24hrs Laboratory Tests Test 09/12/18 16:00 09/13/18 07:59 Blood Gas Specimen Source Blood arterial Arterial Blood Date Drawn 09/12/2018 5:24:00 PM Arterial Blood pH (Temp corrected) 7.336 L Arterial Blood pCO2 (Temp correct) 69.8 H Arterial Blood pO2 (Temp corrected) 62.0 L Arterial Blood HCO3 36.5 H Arterial Blood Base Excess 7.4 H Arterial Blood Oxygen Saturation 90.9 L Fabrice Test ACCEPTAB Arterial Blood Gas Puncture Site Left Radial Arterial Blood Carboxyhemoglobin 1.1 Arterial Blood Methemoglobin 0.2 Blood Gas A-a O2 Differential 4.1 L Oxyhemoglobin Percent 89.7 L Blood Gas Temperature 37.0 Blood Gas Modality ROOM AIR FiO2 21.0 Blood Gas Notified Whom JM Blood Gas Notified Time 09/12/2018 5:57:00 PM White Blood Count 8.4 Red Blood Count 5.86 Hemoglobin 15.4 Hematocrit 50.3 Mean Corpuscular Volume 85.8 Mean Corpuscular Hemoglobin 26.3 L Mean Corpuscular Hemoglobin Concent 30.6 L Red Cell Distribution Width 13.6 Platelet Count 205 Mean Platelet Volume 10.4 Immature Granulocytes % 0.600 H Neutrophils % 61.8 Lymphocytes % 24.9 Monocytes % 8.2 Eosinophils % 3.9 Basophils % 0.6 Nucleated Red Blood Cells % 0.0 Immature Granulocytes # 0.050 H Neutrophils # 5.2 Lymphocytes # 2.1 Monocytes # 0.7 Eosinophils # 0.3 Basophils # 0.1 Nucleated Red Blood Cells # 0.0 Sodium Level 144 Potassium Level 4.0 Chloride Level 97 Carbon Dioxide Level 37 H Anion Gap 10 Blood Urea Nitrogen 14 Creatinine 0.71 Est Glomerular Filtrat Rate mL/min > 60 Glucose Level 105 Calcium Level 9.0 Phosphorus Level 3.8 Magnesium Level 1.9 Total Bilirubin 0.6 Direct Bilirubin 0.00 Indirect Bilirubin 0.6 Aspartate Amino Transf (AST/SGOT) 36 Alanine Aminotransferase (ALT/SGPT) 56 Alkaline Phosphatase 96 Total Protein 7.6 Albumin 4.0 Globulin 3.60 H Albumin/Globulin Ratio 1.11 Medications Medication Current Medications IV Flush (NS 3 ml) 3 ml PER PROTOCOL IV ; Start 09/11/18 at 07:00 Ondansetron HCl (Zofran Inj) 4 mg Q6H PRN IV NAUSEA/VOMITING; Start 09/11/18 at 07:00 Nitroglycerin (Nitroglycerin (Sl Tab) 0.4 Mg) 1 tab Q5M PRN SL .CHEST PAIN; Start 09/11/18 at 07:00 Acetaminophen (Tylenol Tab) 650 mg Q6H PRN PO .PAIN 1-3 OR TEMP; Start 09/11/18 at 07:00 Morphine Sulfate (morphine) 2 mg Q4H PRN IV .PAIN 7-10; Start 09/11/18 at 07:00 Docusate Sodium (Colace) 100 mg Q12H PRN PO .CONSTIPATION; Start 09/11/18 at 07:00 Bisacodyl (Dulcolax) 5 mg DAILY PRN PO .CONSTIPATION; Start 09/11/18 at 07:00 Albuterol/ Ipratropium (Duoneb) 3 ml Q6HWA RESP THERAPY HHN Last administered on 09/13/18at 08:56; Admin Dose 3 ML; Start 09/12/18 at 20:00 Albuterol/ Ipratropium (Duoneb) 3 ml Q2H RESP THERAPY PRN HHN shortness of breath; Start 09/12/18 at 15:30 Budesonide (Pulmicort (Neb)) 0.5 mg BID RESP THERAPY HHN Last administered on 09/13/18at 08:56; Admin Dose 0.5 MG; Start 09/12/18 at 20:00 YRIS DE LA CRUZ Sep 13, 2018 11:04
[2018-09-13] MEDS: FUROSEMIDE 20 MG INJ IV SCH (11:57)
--- NOTE | 2018-09-13 14:56 | PN ---
Date/Time of Note Date/Time of Note DATE: 09/13/18 TIME: 14:50 Objective Vitals Vital Signs Date Temp Pulse Resp B/P (MAP) Pulse Ox O2 O2 Flow FiO2 Time Delivery Rate 09/13/18 85 20 Nasal 2.0 28 14:20 Cannula 09/13/18 97.5 136/87 94 11:43 (103) Intake and Output 09/12/18 09/12/18 09/13/18 1515:00 23:00 07:00 IntakeIntake Total 1200 ml 1300 ml BalanceBalance 1200 ml 1300 ml Results Result Diagram: 09/13/18 0759 09/13/18 0759 Medications Medications Current Medications IV Flush (NS 3 ml) 3 ml PER PROTOCOL IV ; Start 09/11/18 at 07:00 Ondansetron HCl (Zofran Inj) 4 mg Q6H PRN IV NAUSEA/VOMITING; Start 09/11/18 at 07:00 Nitroglycerin (Nitroglycerin (Sl Tab) 0.4 Mg) 1 tab Q5M PRN SL .CHEST PAIN; Start 09/11/18 at 07:00 Acetaminophen (Tylenol Tab) 650 mg Q6H PRN PO .PAIN 1-3 OR TEMP; Start 09/11/18 at 07:00 Morphine Sulfate (morphine) 2 mg Q4H PRN IV .PAIN 7-10; Start 09/11/18 at 07:00 Docusate Sodium (Colace) 100 mg Q12H PRN PO .CONSTIPATION; Start 09/11/18 at 07:00 Bisacodyl (Dulcolax) 5 mg DAILY PRN PO .CONSTIPATION; Start 09/11/18 at 07:00 Albuterol/ Ipratropium (Duoneb) 3 ml Q6HWA RESP THERAPY HHN Last administered on 09/13/18at 14:20; Admin Dose 3 ML; Start 09/12/18 at 20:00 Albuterol/ Ipratropium (Duoneb) 3 ml Q2H RESP THERAPY PRN HHN shortness of breath; Start 09/12/18 at 15:30 Budesonide (Pulmicort (Neb)) 0.5 mg BID RESP THERAPY HHN Last administered on 09/13/18at 08:56; Admin Dose 0.5 MG; Start 09/12/18 at 20:00 Furosemide (Lasix) 20 mg DAILY IV Last administered on 09/13/18at 11:57; Admin Dose 20 MG; Start 09/13/18 at 11:30 VTE Prophylaxis Risk score (from Ns)>0 risk: 2 SCD applied (from [facility]): No SCD contraindication: other Lines/Catheters IV Catheter Type: [place] in Place: No Assessment/Plan Hospital Course Subjective Patient feeling well with nasal cannula, but desats without NC Objective Physical exam General: Patient is laying in bed and answers questions appropriately Mentation: Patient is alert and oriented 4, Head: Normocephalic atraumatic Eyes: EOMI, pupils reactive to light Neck: Supple, nontender, midline Respiratory: Clear to auscultation bilaterally Cardiovascular: regular rate, no obvious murmurs Gastrointestinal: non-tender to palpation, bowel sounds heard. Neurological: Moves all extremities spontaneously Skin: No new skin lesions Assessment/Plan 1. Acute chest pain, resolved - most likely demand in setting of morbid obesity - troponins negative x3 - ECHO results noted - CT chest not adequate and unable to perform V/Q due to size -cardiology consulted 2. Pickwickian syndrome/Obesity hypoventilation - lifestyle modification - CPAP/bipap at night and will need outpatient sleep study which can be arranged by PCP -Although patient states he feels well, FiO2 is persistently low without nasal cannula, will try nebulizers to try to increase oxygen if patient can be disc harged with a safe FiO2 -Pulmonology has been consulted as patient's CT angio was not not conclusive for no PE however patient does not have PE symptoms, patient is too obese for VQ scan, ABG has been ordered volume overload? -cardiology consulted -iv lasix 3. Morbid obesity - A1c, lipid panel results noted 4. Disposition -cardiology consulted -pulmonary recs appreciated MADISON WHITLEY Sep 13, 2018 14:56
--- NOTE | 2018-09-13 17:27 | CONS ---
Assessment/Plan Assessment/Plan Hospital Course (Demo Recall) 33 yo with palpitations x 10 minutes, cardiac workup including troponins, telemetry, ekg, and echo are unremarkable for arrhythmia or findings consistent with an acute coronary syndrome. Course significant for hypoxia and probable mandi. Impression: Palpitations, without recurrence Prediabetes Morbid obesity Probable MANDI and obesity hypoventilation Recommendations: No further cardiac workup needed Encouraged lifestyle modification -- exercise, better food choices, weight loss. Hypoxia as per pulmonary, would benefit from outpatient sleep study and cpap Consultation Date/Type/Reason Admit Date/Time Sep 11, 2018 at 06:17 Date of Consultation: Sep 13, 2018 Type of Consult Cardiology Reason for Consultation chest pain Requesting Provider: MADISON WHITLEY Date/Time of Note DATE: 09/13/18 TIME: 17:19 Hx of Present Illness 33 yo with morbid obesity and prediabetes presents with palpitations that woke him from sleep, the sensation of his heart beating hard and fast for about ten minutes, has not recurred in the hospital. He denies actual pain in the chest. He has been noted to be persistently hypoxic and there is concern for both MANDI and obesity hypoventilatory syndrome. 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 He does no exercise. He admits that his diet is not good, eats a lot of meals outside the home, hamburgers, burritos, etc. Nonsmoker, minimal etoh, no drugs, no family history of premature CAD. He last saw a doctor a month ago, who told him he is prediabetic, but cholesterol was okay, blood pressure okay, but that he needs to eat better, exercise, lose weight. Constitutional: no complaints Eyes: no complaints ENT: no complaints Respiratory: no complaints Cardiovascular: no complaints Gastrointestinal: no complaints Genitourinary: no complaints Musculoskeletal: no complaints Skin: no complaints Neurologic: no complaints Endocrine: no complaints Lymphatic: no complaints Psychological: no complaints Immunologic: no complaints Past Medical History Medical History: other (prediabetes) Home Meds Active Scripts Prednisone* (Prednisone*) 20 Mg Tab, 60 MG PO DAILY for 4 Days, TAB Prov:THANIA CORRAL PA-C 02/14/17 Epinephrine (Epipen 2-Claudio) 0.3 Mg/0.3 Ml Pen.injctr, 1 EA INJ ONCE PRN for ALLERGIC REACTION, #1 EA Prov:THANIA CORRAL PA-C 02/14/17 Diphenhydramine Hcl* (Benadryl*) 25 Mg Cap, 25 MG PO Q6, #30 CAP Prov:THANIA CORRAL PA-C 02/14/17 Medications Current Medications IV Flush (NS 3 ml) 3 ml PER PROTOCOL IV ; Start 09/11/18 at 07:00 Ondansetron HCl (Zofran Inj) 4 mg Q6H PRN IV NAUSEA/VOMITING; Start 09/11/18 at 07:00 Nitroglycerin (Nitroglycerin (Sl Tab) 0.4 Mg) 1 tab Q5M PRN SL .CHEST PAIN; Start 09/11/18 at 07:00 Acetaminophen (Tylenol Tab) 650 mg Q6H PRN PO .PAIN 1-3 OR TEMP; Start 09/11/18 at 07:00 Morphine Sulfate (morphine) 2 mg Q4H PRN IV .PAIN 7-10; Start 09/11/18 at 07:00 Docusate Sodium (Colace) 100 mg Q12H PRN PO .CONSTIPATION; Start 09/11/18 at 07:00 Bisacodyl (Dulcolax) 5 mg DAILY PRN PO .CONSTIPATION; Start 09/11/18 at 07:00 Albuterol/ Ipratropium (Duoneb) 3 ml Q6HWA RESP THERAPY HHN Last administered on 09/13/18at 14:20; Admin Dose 3 ML; Start 09/12/18 at 20:00 Albuterol/ Ipratropium (Duoneb) 3 ml Q2H RESP THERAPY PRN HHN shortness of breath; Start 09/12/18 at 15:30 Budesonide (Pulmicort (Neb)) 0.5 mg BID RESP THERAPY HHN Last administered on 09/13/18at 08:56; Admin Dose 0.5 MG; Start 09/12/18 at 20:00 Furosemide (Lasix) 20 mg DAILY IV Last administered on 09/13/18at 11:57; Admin Dose 20 MG; Start 09/13/18 at 11:30 Allergies: Coded Allergies: No Known Allergy (Unverified , 07/10/13) Past Surgical History Past Surgical Hx: no surgical history Social History Alcohol Use: rarely Smoking Status: Former smoker Drug Use: none Exam/Review of Systems Vital Signs Vitals Vital Signs Date Temp Pulse Resp B/P (MAP) Pulse Ox O2 O2 Flow FiO2 Time Delivery Rate 09/13/18 98.6 73 16 134/87 93 15:42 (103) 09/13/18 Nasal 2.0 28 14:20 Cannula Intake and Output 09/12/18 09/12/18 09/13/18 1515:00 23:00 07:00 IntakeIntake Total 1200 ml 1300 ml BalanceBalance 1200 ml 1300 ml Exam Constitutional: alert, oriented, other Psych: nl mood/affect Head: normocephalic, atraumatic Eyes: nl conjunctiva, EOMI, nl lids, nl sclera ENMT: nl external ears & nose, nl lips & teeth Neck: supple, other (cannot see jugular venous pressure); No bruits Respiratory: clear to auscultation, normal air movement Cardiovascular: regular rate and rhythm, nl pulses; No murmurs/extra sounds Gastrointestinal: soft, non-tender, other (unable to assess liver due to body habitus) Musculoskeletal: nl extremities to inspection Extremities: normal pulses, edema (mild lower extremity edema) Neurological: nl mental status, nl speech Skin: nl turgor; No rash or lesions Labs Result Diagram: 09/13/18 0759 09/13/18 0759 Results 24hrs Laboratory Tests Test 09/13/18 07:59 White Blood Count 8.4 Red Blood Count 5.86 Hemoglobin 15.4 Hematocrit 50.3 Mean Corpuscular Volume 85.8 Mean Corpuscular Hemoglobin 26.3 L Mean Corpuscular Hemoglobin Concent 30.6 L Red Cell Distribution Width 13.6 Platelet Count 205 Mean Platelet Volume 10.4 Immature Granulocytes % 0.600 H Neutrophils % 61.8 Lymphocytes % 24.9 Monocytes % 8.2 Eosinophils % 3.9 Basophils % 0.6 Nucleated Red Blood Cells % 0.0 Immature Granulocytes # 0.050 H Neutrophils # 5.2 Lymphocytes # 2.1 Monocytes # 0.7 Eosinophils # 0.3 Basophils # 0.1 Nucleated Red Blood Cells # 0.0 Sodium Level 144 Potassium Level 4.0 Chloride Level 97 Carbon Dioxide Level 37 H Anion Gap 10 Blood Urea Nitrogen 14 Creatinine 0.71 Est Glomerular Filtrat Rate mL/min > 60 Glucose Level 105 Calcium Level 9.0 Phosphorus Level 3.8 Magnesium Level 1.9 Total Bilirubin 0.6 Direct Bilirubin 0.00 Indirect Bilirubin 0.6 Aspartate Amino Transf (AST/SGOT) 36 Alanine Aminotransferase (ALT/SGPT) 56 Alkaline Phosphatase 96 Total Protein 7.6 Albumin 4.0 Globulin 3.60 H Albumin/Globulin Ratio 1.11 Imaging Imaging EKG shows NSR at 81 bpm and is a normal ekg Echo demonstrates normal LV function, pulm pressures could not be assessed Medications Medications Current Medications IV Flush (NS 3 ml) 3 ml PER PROTOCOL IV ; Start 09/11/18 at 07:00 Ondansetron HCl (Zofran Inj) 4 mg Q6H PRN IV NAUSEA/VOMITING; Start 09/11/18 at 07:00 Nitroglycerin (Nitroglycerin (Sl Tab) 0.4 Mg) 1 tab Q5M PRN SL .CHEST PAIN; Start 09/11/18 at 07:00 Acetaminophen (Tylenol Tab) 650 mg Q6H PRN PO .PAIN 1-3 OR TEMP; Start 09/11/18 at 07:00 Morphine Sulfate (morphine) 2 mg Q4H PRN IV .PAIN 7-10; Start 09/11/18 at 07:00 Docusate Sodium (Colace) 100 mg Q12H PRN PO .CONSTIPATION; Start 09/11/18 at 07:00 Bisacodyl (Dulcolax) 5 mg DAILY PRN PO .CONSTIPATION; Start 09/11/18 at 07:00 Albuterol/ Ipratropium (Duoneb) 3 ml Q6HWA RESP THERAPY HHN Last administered on 09/13/18at 14:20; Admin Dose 3 ML; Start 09/12/18 at 20:00 Albuterol/ Ipratropium (Duoneb) 3 ml Q2H RESP THERAPY PRN HHN shortness of breath; Start 09/12/18 at 15:30 Budesonide (Pulmicort (Neb)) 0.5 mg BID RESP THERAPY HHN Last administered on 09/13/18at 08:56; Admin Dose 0.5 MG; Start 09/12/18 at 20:00 Furosemide (Lasix) 20 mg DAILY IV Last administered on 09/13/18at 11:57; Admin Dose 20 MG; Start 09/13/18 at 11:30 ALAINA STRATTON Sep 13, 2018 17:27
[2018-09-14] VITALS (13 sets, daily range): BP systolic 116–136; BP diastolic 62–77; PULSE 63–89; RESP 16–18
[2018-09-14] MEDS: FUROSEMIDE 20 MG INJ IV SCH (08:23)
[2018-09-14] MEDS: BUDESONIDE (NEB) 0.5MG/2ML AMP HHN SCH ×3 (11:50→19:28)
[2018-09-14] MEDS: ALBUTEROL/IPRATROPIUM (NEB) 3 ML AMP HHN SCH ×3 (11:50→19:28)
--- NOTE | 2018-09-14 15:12 | PN ---
Date/Time of Note Date/Time of Note DATE: 09/14/18 TIME: 15:09 Objective Vitals Vital Signs Date Temp Pulse Resp B/P (MAP) Pulse Ox O2 O2 Flow FiO2 Time Delivery Rate 09/14/18 88 20 98 Nasal 2.0 14:28 Cannula 09/14/18 98.6 133/67 11:58 (89) 09/14/18 40 04:10 Intake and Output 09/13/18 09/13/18 09/14/18 1515:00 23:00 07:00 IntakeIntake Total 1200 ml 800 ml BalanceBalance 1200 ml 800 ml Results Result Diagram: 09/14/18 0613 09/14/1813 Medications Medications Current Medications IV Flush (NS 3 ml) 3 ml PER PROTOCOL IV ; Start 09/11/18 at 07:00 Ondansetron HCl (Zofran Inj) 4 mg Q6H PRN IV NAUSEA/VOMITING; Start 09/11/18 at 07:00 Nitroglycerin (Nitroglycerin (Sl Tab) 0.4 Mg) 1 tab Q5M PRN SL .CHEST PAIN; Start 09/11/18 at 07:00 Acetaminophen (Tylenol Tab) 650 mg Q6H PRN PO .PAIN 1-3 OR TEMP Last administered on 09/13/18at 20:36; Admin Dose 650 MG; Start 09/11/18 at 07:00 Morphine Sulfate (morphine) 2 mg Q4H PRN IV .PAIN 7-10; Start 09/11/18 at 07:00 Docusate Sodium (Colace) 100 mg Q12H PRN PO .CONSTIPATION; Start 09/11/18 at 07:00 Bisacodyl (Dulcolax) 5 mg DAILY PRN PO .CONSTIPATION; Start 09/11/18 at 07:00 Albuterol/ Ipratropium (Duoneb) 3 ml Q6HWA RESP THERAPY HHN Last administered on 09/14/18at 14:16; Admin Dose 3 ML; Start 09/12/18 at 20:00 Albuterol/ Ipratropium (Duoneb) 3 ml Q2H RESP THERAPY PRN HHN shortness of breath; Start 09/12/18 at 15:30 Budesonide (Pulmicort (Neb)) 0.5 mg BID RESP THERAPY HHN Last administered on 09/14/18at 14:17; Admin Dose 0.5 MG; Start 09/12/18 at 20:00 Furosemide (Lasix) 20 mg DAILY IV Last administered on 09/14/18at 08:23; Admin Dose 20 MG; Start 09/13/18 at 11:30 VTE Prophylaxis Risk score (from [facility] [place])>0 risk: 1 SCD applied (from [facility] [place]): No SCD contraindication: other Lines/Catheters IV Catheter Type: [place] in Place: No Assessment/Plan Hospital Course Subjective Patient feeling well with nasal cannula, but desats without NC Objective Physical exam General: Patient is laying in bed and answers questions appropriately Mentation: Patient is alert and oriented 4, Head: Normocephalic atraumatic Eyes: EOMI, pupils reactive to light Neck: Supple, nontender, midline Respiratory: Clear to auscultation bilaterally Cardiovascular: regular rate, no obvious murmurs Gastrointestinal: non-tender to palpation, bowel sounds heard. Neurological: Moves all extremities spontaneously Skin: No new skin lesions Assessment/Plan 1. Acute chest pain, resolved - most likely demand in setting of morbid obesity - troponins negative x3 - ECHO results noted - CT chest not adequate and unable to perform V/Q due to size -cardiology consulted, no further workup needed 2. Pickwickian syndrome/Obesity hypoventilation - lifestyle modification - CPAP/bipap at night and will need outpatient sleep study which can be arranged by PCP -Although patient states he feels well, FiO2 is persistently low without nasal cannula, will try nebulizers to try to increase oxygen if patient can be d ischarged with a safe FiO2 -Pulmonology has been consulted as patient's CT angio was not not conclusive for no PE however patient does not have PE symptoms, patient is too obese for VQ scan, ABG noted volume overload? -cardiology consulted -iv lasix now stopped due to no clear evidence of congestive heart failure -We will continue to monitor 3. Morbid obesity - A1c, lipid panel results noted 4. Disposition -Cardiology and pulmonary recommendations appreciated, patient will need home O2 and BiPAP before discharge. Patient is to follow with donation specialist as soon as possible. MADISON WHITLEY Sep 14, 2018 15:12
[2018-09-15] VITALS (14 sets, daily range): BP systolic 118–143; BP diastolic 68–88; PULSE 68–87; RESP 18–19
[2018-09-15] MEDS: ALBUTEROL/IPRATROPIUM (NEB) 3 ML AMP HHN SCH (08:16)
[2018-09-15] MEDS: BUDESONIDE (NEB) 0.5MG/2ML AMP HHN SCH (09:37)
--- NOTE | 2018-09-15 13:34 | PN ---
Date/Time of Note Date/Time of Note DATE: 09/15/18 TIME: 13:33 Objective Vitals Vital Signs Date Temp Pulse Resp B/P (MAP) Pulse Ox O2 O2 Flow FiO2 Time Delivery Rate 09/15/18 82 12:24 09/15/18 97.4 18 118/68 92 11:15 (85) 09/15/18 Nasal 2.0 08:26 Cannula 09/15/18 35 01:19 Intake and Output 09/14/18 09/14/18 09/15/18 1515:00 23:00 07:00 IntakeIntake Total 800 ml BalanceBalance 800 ml Results Result Diagram: 09/15/18 0657 09/15/18 0659 Medications Medications Current Medications IV Flush (NS 3 ml) 3 ml PER PROTOCOL IV ; Start 09/11/18 at 07:00 Ondansetron HCl (Zofran Inj) 4 mg Q6H PRN IV NAUSEA/VOMITING; Start 09/11/18 at 07:00 Nitroglycerin (Nitroglycerin (Sl Tab) 0.4 Mg) 1 tab Q5M PRN SL .CHEST PAIN; Start 09/11/18 at 07:00 Acetaminophen (Tylenol Tab) 650 mg Q6H PRN PO .PAIN 1-3 OR TEMP Last administered on 09/13/18at 20:36; Admin Dose 650 MG; Start 09/11/18 at 07:00 Morphine Sulfate (morphine) 2 mg Q4H PRN IV .PAIN 7-10; Start 09/11/18 at 07:00 Docusate Sodium (Colace) 100 mg Q12H PRN PO .CONSTIPATION; Start 09/11/18 at 07:00 Bisacodyl (Dulcolax) 5 mg DAILY PRN PO .CONSTIPATION; Start 09/11/18 at 07:00 Albuterol/ Ipratropium (Duoneb) 3 ml Q6HWA RESP THERAPY HHN Last administered on 09/15/18at 08:16; Admin Dose 3 ML; Start 09/12/18 at 20:00 Albuterol/ Ipratropium (Duoneb) 3 ml Q2H RESP THERAPY PRN HHN shortness of breath; Start 09/12/18 at 15:30 Budesonide (Pulmicort (Neb)) 0.5 mg BID RESP THERAPY HHN Last administered on 09/15/18at 09:37; Admin Dose 0.5 MG; Start 09/12/18 at 20:00 VTE Prophylaxis Risk score (from [facility])>0 risk: 1 SCD applied (from [facility]): No SCD contraindication: low risk/ambulating, other Lines/Catheters IV Catheter Type: [place] in Place: No Assessment/Plan Hospital Course Subjective Patient feeling well with nasal cannula, but desats without NC Objective Physical exam General: Patient is laying in bed and answers questions appropriately Mentation: Patient is alert and oriented 4, Head: Normocephalic atraumatic Eyes: EOMI, pupils reactive to light Neck: Supple, nontender, midline Respiratory: Clear to auscultation bilaterally Cardiovascular: regular rate, no obvious murmurs Gastrointestinal: non-tender to palpation, bowel sounds heard. Neurological: Moves all extremities spontaneously Skin: No new skin lesions Assessment/Plan 1. Acute chest pain, resolved - most likely demand in setting of morbid obesity - troponins negative x3 - ECHO results noted - CT chest not adequate and unable to perform V/Q due to size -cardiology consulted, no further workup needed 2. Pickwickian syndrome/Obesity hypoventilation - lifestyle modification - CPAP/bipap at night and will need outpatient sleep study which can be arranged by PCP -Although patient states he feels well, FiO2 is persistently low without nasal cannula, will try nebulizers to try to increase oxygen if patient can be discharged with a safe FiO2 -Pulmonology has been consulted as patient's CT angio was not not conclusive for no PE however patient does not have PE symptoms, patient is too obese for VQ scan, ABG noted volume overload? -cardiology consulted -iv lasix now stopped due to no clear evidence of congestive heart failure -We will continue to monitor 3. Morbid obesity - A1c, lipid panel results noted 4. Disposition -Cardiology and pulmonary recommendations appreciated, patient will need home O2 and BiPAP before discharge. Patient is to follow with tobacco packing machine operator as soon as possible. MADISON WHITLEY Sep 15, 2018 13:34
[2018-09-15] MEDS: TIOTROPIUM 18 MCG CAPSULE INHA DEV INH SCH (15:00)
[2018-09-15] MEDS: FLUTICASONE/VILANTEROL 100-25 INH SCH (15:00)
[2018-09-16 00:58] VITALS: PULSE 78
[2018-09-16 02:01] VITALS: BP 136/79; PULSE 76; RESP 20
[2018-09-16 03:30] VITALS: PULSE 72
[2018-09-16 07:48] VITALS: BP 136/80; PULSE 92; RESP 20
[2018-09-16] MEDS: FLUTICASONE/VILANTEROL 100-25 INH SCH ×2 (09:00→09:09)
[2018-09-16] MEDS: TIOTROPIUM 18 MCG CAPSULE INHA DEV INH SCH ×2 (09:00→09:09)
[2018-09-16 09:19] VITALS: RESP 20
[2018-09-16] MEDS ORDERED: ADV25050 INHALATION (12:48)
[2018-09-16] MEDS ORDERED: TIOT18CA INH (12:48)
--- NOTE | 2018-09-16 12:50 | PDOCDIS ---
Discharge Instructions CONDITION [id number] Patient Condition: [id number] Stable FOLLOW UP/APPOINTMENTS Follow-up Plan 1. Please use BiPAP machine delivered at home every night 2. Please return to ED if shortness of breath continues 3. Please follow-up with your regular doctor as well as a cotton candy maker or lung doctor as soon as possible. MADISON WHITLEY Sep 16, 2018 12:50
--- NOTE | 2018-09-16 12:53 | DS ---
Date/Time of Note Date/Time of Note DATE: 09/16/18 TIME: 12:53 Discharge Summary Admission/Discharge Info Admit Date/Time Sep 12, 2018 at 15:17 Discharge Date/Time Patient Condition: Stable Hospital Course Patient is a male with a past medical history significant for obesity who presented to [facility] for chest pain. Patient was ruled out for acute coronary syndrome however due to his obesity was diagnosed with obesity hypoventilation syndrome. Patient was seen by pulmonology which subsequently recommended BiPAP at night. Patient was not doing very well on nasal cannula however with breathing treatments and subsequently scheduled inhaled corticosteroids, patient did very well and on day of discharge patient was ambulating with an O2 saturation of 98%. Patient currently doing very well on room air and has no issues with ambulating or sitting while off oxygen. Patient will have BiPAP machine delivered tonight per foster care case manager. Patient will be discharged with appropriate inhalers to be follow-up with his private advisor as soon as possible. Discharge diagnosis Acute chest pain, ruled out ACS Obesity hypoventilation syndrome Morbid obesity Acute on chronic respiratory failure, resolving Home Meds Active Scripts Salmeterol Xinaf/Fluticasone* (Advair*) 250-50 Diskus Inhaler, 1 INH INHALATION BID, #1 INHALER 4 Refills Prov:MADISON WHITLEY 09/16/18 Tiotropium [place]* (Spiriva*) 18 Mcg Cap.w.dev, 1 INH INH DAILY for 30 Days, #1 INHALER 4 Refills Prov:MADISON WHITLEY 09/16/18 Epinephrine (Epipen 2-Claudio) 0.3 Mg/0.3 Ml Pen.injctr, 1 EA INJ ONCE PRN for ALLERGIC REACTION, #1 EA Prov:THANIA CORRAL PA-C 02/14/17 Discontinued Scripts Prednisone* (Prednisone*) 20 Mg Tab, 60 MG PO DAILY for 4 Days, TAB Prov:THANIA CORRAL PA-C 02/14/17 Diphenhydramine Hcl* (Benadryl*) 25 Mg Cap, 25 MG PO Q6, #30 CAP Prov:THANIA CORRAL PA-C 02/14/17 Follow-up Plan 1. Please use BiPAP machine delivered at home every night 2. Please return to ED if shortness of breath continues 3. Please follow-up with your regular doctor as well as a private advisor or lung doctor as soon as possible. Primary Care Provider Not On Staff Doctor Time spent on discharge: > 30 minutes Pending Labs Laboratory Tests Test 09/16/18 05:01 White Blood Count 8.3 10^3/ul (4.8-10.8) Red Blood Count 6.24 10^6/ul (4.70-6.10) Hemoglobin 16.3 g/dl (14.0-18.0) Hematocrit 52.8 % (42.0-52.0) Mean Corpuscular Volume 84.6 fl (82.0-101.0) Mean Corpuscular Hemoglobin 26.1 pg (29.0-33.0) Mean Corpuscular Hemoglobin Concent 30.9 g/dl (32.0-37.0) Red Cell Distribution Width 14.0 % (11.5-14.5) Platelet Count 216 10^3/UL (140-415) Mean Platelet Volume 10.3 fl (7.4-10.4) Immature Granulocytes % 0.400 % (0.001-0.429) Neutrophils % 60.2 % (39.0-77.0) Lymphocytes % 26.8 % (15.0-51.0) Monocytes % 7.5 % (0.0-11.0) Eosinophils % 4.5 % (0.0-7.0) Basophils % 0.6 % (0.0-2.0) Nucleated Red Blood Cells % 0.0 /100WBC (0.0-0.0) Immature Granulocytes # 0.030 10^3/ul (0.0-0.031) Neutrophils # 5.0 10^3/ul (1.6-7.5) Lymphocytes # 2.2 10^3/ul (0.8-2.9) Monocytes # 0.6 10^3/ul (0.3-0.9) Eosinophils # 0.4 10^3/ul (0.0-0.5) Basophils # 0.1 10^3/ul (0.0-0.1) Nucleated Red Blood Cells # 0.0 10^3/ul (0.0-0.0) Sodium Level 144 mmol/L (135-144) Potassium Level 4.3 mmol/L (3.5-5.1) Chloride Level 97 mmol/L (97-110) Carbon Dioxide Level 38 mmol/L (21-31) Anion Gap 9 (5-13) Blood Urea Nitrogen 14 mg/dl (7-20) Creatinine 0.76 mg/dl (0.61-1.24) Est Glomerular Filtrat Rate mL/min > 60 mL/min (>60) Glucose Level 102 mg/dl (70-220) Calcium Level 9.2 mg/dl (8.4-10.2) Phosphorus Level 5.1 mg/dl (2.5-4.9) Magnesium Level 1.9 mg/dl (1.7-2.5) MADISON WHITLEY Sep 16, 2018 12:53
[2018-09-16] MEDS ORDERED: ALBU8.5H8 INH (12:54)
[2018-09-16 14:26] VITALS: BP 131/69; PULSE 78; RESP 20
--- NOTE | 2018-09-16 14:26 | CONS ---
Consult Date/Type/Reason Admit Date/Time Sep 12, 2018 at 15:17 Initial Consult Date 09/13/18 Type of Consult Pulmonary Requesting Provider: MADISON WHITLEY Date/Time of Note DATE: 09/16/18 TIME: 14:22 Subjective Patient remained stable this morning no new events anticipating discharge Objective Vital Signs Date Temp Pulse Resp B/P (MAP) Pulse Ox O2 O2 Flow FiO2 Time Delivery Rate 09/16/18 20 96 Room Air 09:19 09/16/18 98.5 92 136/80 07:48 (98) 09/16/18 40 03:30 09/16/18 2.0 00:57 Intake and Output 09/15/18 09/15/18 09/16/18 1515:00 23:00 07:00 IntakeIntake Total 700 ml BalanceBalance 700 ml Exam GENERAL: Moderately obese gentleman comfortable at rest VITAL SIGNS: per chart NECK: Supple. No JVD or lymphadenopathy. CARDIAC EXAM: S1, S2. No added sounds or murmurs. CHEST: clear bilaterally, No added sounds, rales or wheezes ABDOMEN: Soft, nontender. No guarding or rebound. EXTREMITIES: No cyanosis, clubbing or edema. NEUROLOGIC: Generalized weakness. No focal deficits. Vent Setting Fraction of Inspired Oxygen pe: 28 Results/Medications Result Diagram: 09/16/18 0501 09/16/18 0501 Results 24 hrs Laboratory Tests Test 09/16/18 05:01 White Blood Count 8.3 Red Blood Count 6.24 H Hemoglobin 16.3 Hematocrit 52.8 H Mean Corpuscular Volume 84.6 Mean Corpuscular Hemoglobin 26.1 L Mean Corpuscular Hemoglobin Concent 30.9 L Red Cell Distribution Width 14.0 Platelet Count 216 Mean Platelet Volume 10.3 Immature Granulocytes % 0.400 Neutrophils % 60.2 Lymphocytes % 26.8 Monocytes % 7.5 Eosinophils % 4.5 Basophils % 0.6 Nucleated Red Blood Cells % 0.0 Immature Granulocytes # 0.030 Neutrophils # 5.0 Lymphocytes # 2.2 Monocytes # 0.6 Eosinophils # 0.4 Basophils # 0.1 Nucleated Red Blood Cells # 0.0 Sodium Level 144 Potassium Level 4.3 Chloride Level 97 Carbon Dioxide Level 38 H Anion Gap 9 Blood Urea Nitrogen 14 Creatinine 0.76 Est Glomerular Filtrat Rate mL/min > 60 Glucose Level 102 Calcium Level 9.2 Phosphorus Level 5.1 H Magnesium Level 1.9 Medications Current Medications IV Flush (NS 3 ml) 3 ml PER PROTOCOL IV ; Start 09/11/18 at 07:00 Ondansetron HCl (Zofran Inj) 4 mg Q6H PRN IV NAUSEA/VOMITING; Start 09/11/18 at 07:00 Nitroglycerin (Nitroglycerin (Sl Tab) 0.4 Mg) 1 tab Q5M PRN SL .CHEST PAIN; Start 09/11/18 at 07:00 Acetaminophen (Tylenol Tab) 650 mg Q6H PRN PO .PAIN 1-3 OR TEMP Last administered on 09/13/18at 20:36; Admin Dose 650 MG; Start 09/11/18 at 07:00 Morphine Sulfate (morphine) 2 mg Q4H PRN IV .PAIN 7-10; Start 09/11/18 at 07:00 Docusate Sodium (Colace) 100 mg Q12H PRN PO .CONSTIPATION; Start 09/11/18 at 07:00 Bisacodyl (Dulcolax) 5 mg DAILY PRN PO .CONSTIPATION; Start 09/11/18 at 07:00 Albuterol/ Ipratropium (Duoneb) 3 ml Q2H RESP THERAPY PRN HHN shortness of breath; Start 09/12/18 at 15:30 Fluticasone/ Vilanterol (Breo Ellipta 100-25 Mcg Inh) 1 inh DAILY INH Last administered on 09/16/18at 09:09; Admin Dose 1 INH; Start 09/15/18 at 15:00 Tiotropium [place] (Spiriva) 1 inh DAILY INH Last administered on 09/16/18at 09:09; Admin Dose 1 INH; Start 09/15/18 at 15:00 Assessment/Plan Hospital Course (Demo Recall) Assessment/plan Status post hypoxemic and hypercapnic respiratory failure in a patient with likely obesity hypoventilation syndrome. The patient suffers from obesity hypoventilation and restrictive lung disease with chronic hypercapnia that prevents him from adequately exchanging his oxygen and PCO2 normally. Trilogy AVAPS AE mode features will benefit the patient. All other devices have been ruled out. The patient will need oxygen concent rator and portables. Concentrated to be bled into trilogy at night. Outpatient follow-up with primary care physician and pulmonary ESTELLE KAY MD, [facility] Sep 16, 2018 14:26
== END 2018-09-16 16:40 | disposition home or self-care (01) | DRG 205 ==
LOC: E/R 01:17 → TEL 06:17 → OBSVTOIN 09-12 15:17 → 2NE 09-15 18:10
PROVIDERS: ADMIT Family Medicine; ATTEND Internal Medicine
DX: E66.2 Morbid (severe) obesity with alveolar hypoventilation (principal); J96.21 Acute and chronic respiratory failure with hypoxia; J96.22 Acute and chronic respiratory failure with hypercapnia; Z68.44 Body mass index [BMI] 60.0-69.9, adult; R07.9 Chest pain, unspecified; R73.03 Prediabetes; R00.2 Palpitations; Z71.3 Dietary counseling and surveillance; Z87.891 Personal history of nicotine dependence
CPT/HCPCS: 36415; 36600; 71275; 80048; 80053; 80061; 80307; 82550; 82553; 82803; 83036; 83735; 83880; 84100; 84443; 84484; 85025; 85610; 85730; 93005; 93306; 94640; 94660; 94664; G0378; J1940; Q9967